=== PATIENT | female | born 1975 | race African-American/Black ===

== ENCOUNTER 2023-02-13 09:59 | Emergency (ER) | payer BC, SELFPAY ==
[2023-02-13 10:00] VITALS: BP 112/51; PULSE 74; RESP 16; TEMP 37.1; O2SAT 100; BMI 24.4
--- NOTE | 2023-02-13 10:47 | CT_ITS ---
INDICATION: dysphagia -- right ant neck, hx of hysterectomy EXAMINATION: CT NECK WITH CONTRAST - CT Soft Tissue Neck W/ Contrast Injection TECHNIQUE: Helically acquired images were obtained of the neck following IV contrast. A radiation dose optimization technique was used for this scan. IV Contrast dosage and agent: 100 cc of Isovue-370 RADIATION DOSAGE (If Supplied By Facility): CTDIvol = ( 14.07 ) mGy, DLP = ( 414.8 ) mGycm COMPARISON: No relevant prior comparison study available FINDINGS: NASOPHARYNX: Unremarkable. SUPRAHYOID NECK: Unremarkable oropharynx, oral cavity, parapharyngeal space, and retropharyngeal space. INFRAHYOID NECK: Unremarkable larynx, hypopharynx, and supraglottis. THYROID: Significant artifacts in the left lobe of thyroid gland. Otherwise grossly unremarkable. SALIVARY GLANDS: Unremarkable. LYMPH NODES: Predominantly on the right side of the neck, the largest in the right carotid space measuring about 1.3 cm which could reflect reactive lymph hyperplasia. VASCULAR STRUCTURES: Unremarkable. VISUALIZED PORTIONS OF THE ORBITS, PARANASAL SINUSES, MASTOID AIR CELLS AND SKULL BASE: Unremarkable. BONES: No demonstrated acute osseous changes. THORACIC INLET: Clear lung apices. CT/Soft Tissue Neck WITH Contrast IMPRESSION: 1. Unremarkable airway. 2. Prominent nodes in the right side of the neck which could be reactive. Electronically Signed: Ulysses Mota MD at 11:40 EDT ,
--- NOTE | 2023-02-13 10:48 | EX.ED.DYSGE1 ---
HPI History of Present Illness Chief Complaint: Foreign Body Informant: patient Narrative Narrative: Reports increasing right sided anterior neck pain worse with swallowing over 2 weeks. Initial triage report concerns for fishbone however she did not ED specific when she felt symptoms. No previous similar symptoms in the past. She is able to eat and drink however he states decreased due to discomfort. No fevers. No history of endoscopies. She has not seen a PCP in a year after moving here from [place]. Hysterectomy in the past. Prior similar symptoms: No PFSH PFSH Medical History no medical history Home Medications amoxicillin 875 mg-potassium clavulanate 125 mg tablet 875 mg (0.875 x 875-125 mg) PO Q12H #20 TABLETS 02/13/23 [Rx Last Taken Unknown] prednisone 20 mg tablet 60 mg (3 x 20 mg) PO DAILY #12 TABLETS 02/13/23 [Rx Last Taken Unknown] Allergy/AdvReac Type Severity Reaction Status Date / Time No Known Allergies Allergy Verified 02/13/23 10:02 Surgical History no surgical history Social History Smoking Status: Never smoker ROS ROS ED Constitutional Constitutional ED: Denies chills, fever(s) or sweats Eyes Eyes: Denies change in vision ENT ENT ED: Reports dysphagia; Denies sore throat Cardiovascular Cardiovascular: Denies chest pain, leg edema, palpitations or racing heartbeat Respiratory/Chest Respiratory/Chest: Denies cough, dyspnea or dyspnea on exertion Gastrointestinal Gastrointestinal: Denies abdominal pain, diarrhea, nausea or vomiting Genitourinary Genitourinary ED: Denies dysuria, hematuria or urinary frequency Musculoskeletal Musculoskeletal: Reports neck pain; Denies back pain or extremity pain Integumentary Denies rash or wounds Neurologic Neurologic: Denies headache(s), paresthesias or weakness EXAM Physical Exam Const Vital Signs: 02/13/23 10:00 02/13/23 10:28 Temperature 98.8 F Temperature Source Temporal Pulse Rate 74 Respiratory Rate 16 Respiratory Effort Normal Non-Labored Respiratory Pattern Normal Blood Pressure 112/51 L Blood Pressure Mean 71 Pulse Ox 100 Oxygen Delivery Method Room Air Positive well nourished and well developed General Appearance ED: well developed and NAD HEENT Reports moist mucous membranes HEENT Narrative: Minimal sized tonsils airway patent and no erythema. normocephalic and atraumatic Eyes PERRL, EOMs intact bilaterally and conjunctivae normal General Eye ED: Yes normal appearance of both eyes Neck supple Neck Narrative: Tender palpation right anterior cervical region, no gross mass palpated. General: Negative for tenderness Chest Wall Chest: Negative for tenderness Resp normal respiratory effort and normal air movement Effort and Inspection: symmetric chest movement; Negative for respiratory distress Cardio regular rate, regular rhythm and no murmurs Peripheral Pulses: pulses 2+ throughout GI normal to inspection, nondistended, normoactive bowel sounds and non-tender Palpation: Negative for guarding or rebound tenderness present Back/Spine no CVA tenderness and no thoracic nor lumbar tenderness Extremity normal to inspection General Extremety ED: Negative for edema or tenderness General Extremity: Negative for edema Neuro oriented x3 and no sensory deficits noted Sensorium / Orientation: awake and alert Skin no rashes or lesions noted and no wounds MDM MDM MDM Narrative Medical decision making narrative: Interventions / MDM: Differential diagnosis: Neck mass, cervical lymphadenopathy Diagnosis considered but do not suspect: Esophageal impaction, able to swallow and eat My EKG interpretation: N/A Imaging independently reviewed and interpreted by myself: CT soft tissue neck: Multiple anterior right cervical adenopathy largest 1.3 cm, no airway or esophageal obstruction. External documents reviewed: N/A Test considered but not ordered:N/A ED course: Patient progressive symptoms 2 weeks. No fevers. No signs of a throat or ear infection. Reports odynophagia. No palpable mass. Progressive symptoms, labs and CT soft tissue obtained. Results notes multiple cervical lymphadenopathy largest 1.3 cm. She started on steroids and antibiotics. She is referred to ENT. All questions were answered. Re-evaluation: stable Disposition discussed with patient/family/significant other: Patient Case discussed with consulting clinician: N/A This note was generated with [employer] dictation software. It may contain incorrect words, spelling, and punctuation that were not noted in checking the note before signing. Lab Data Attestation: I reviewed the patient's lab results. Labs: Laboratory Results - last 24 hr 02/13/23 10:57 WBC 5.6 RBC 4.52 Hgb 12.1 Hct 38.9 MCV 86.1 MCH 26.8 L MCHC 31.1 L RDW Std Deviation 39.2 RDW Coeff of Manuel 12.5 Plt Count 269 MPV 10.6 Immature Gran % (Auto) 0.200 Neut % (Auto) 48.6 Lymph % (Auto) 43.7 H [place] % (Auto) 6.5 Eos % (Auto) 0.5 Baso % (Auto) 0.5 Absolute Neuts (auto) 2.7 Absolute Lymphs (auto) 2.44 Nucleated RBC % 0 Sodium 136 Potassium 3.6 Chloride 104 Carbon Dioxide 28.0 Anion Gap 4 L BUN 13 Creatinine 0.83 Estim Creat Clear Calc 79.73 Est GFR (MDRD) Af Amer 93 Est GFR (MDRD) Non-Af 77 BUN/Creatinine Ratio 15.6 Glucose 90 Calcium 9.3 Radiography Diagnostic Testing: Clinical Impression(s) from Imaging Studies Soft Tissue Neck CT 02/13/23 10:47 IMPRESSION: 1. Unremarkable airway. 2. Prominent nodes in the right side of the neck which could be reactive. Electronically Signed: Ulysses Mota MD at 11:40 EDT , Discharge Plan Triage Chief Complaint: Foreign Body ED Provider: Berry Gordon Dx/Rx/DC Orders Clinical Impression: Cervical adenitis, Lymphadenitis Instructions: ED ADENITIS Cervical Abx Tx Prescriptions: New prednisone 20 mg tablet 60 mg PO DAILY Qty: 12 0RF amoxicillin-pot clavulanate [amoxicillin-pot clavulanate] 875-125 mg tablet 875 mg PO Q12H Qty: 20 0RF Primary Care Provider: Care Physician,No Primary Referrals: Kwaku Black MD [Med Staff - Active Staff] - 1 Week NOT,DEFINED [Non-Staff] - Activity Restrictions/Additional Instructions: Your CT soft tissue neck notes right side anterior cervical lymphadenopathy, multiple ones largest being 1.3 cm. You have tenderness. Take steroid and antibiotic as prescribed. Follow-up with Dr. Black. Disposition Disposition: Home, Self Care Discharge Date/Time: 02/13/23 13:11
[2023-02-13 11:05] LABS: Absolute Lymphocyte Count 2.44 X10^3/uL (0.83-4.51); Absolute Neutrophil Count 2.7 X10^3/uL (2.0-7.7); Basophil# 0.03 X10^3/uL; Basophil% 0.5 % (0-1); Eosinophil# 0.03 X10^3/uL; Eosinophils% 0.5 % (0-5); Hematocrit 38.9 % (37-47); Hemoglobin 12.1 g/dL (12.0-15.0); Lymphocyte # 2.44 X10^3/ul (0.83-4.51); Lymphocyte % 43.7 % (19-41); Mean Corp Hgb Conc 31.1 g/dL (32-36); Mean Corpuscular Hgb 26.8 pg (27.0-32.0); Mean Corpuscular Volume 86.1 fL (81-99); Mean Platelet Vol. 10.6 fl (6.2-12.0); Monocyte# 0.36 X10^3/uL; Monocyte% 6.5 % (0-10); NRBC Flagged by Analyzer 0 % (0-5); Neutrophil # 2.71 X10^3/uL (2.7-7.7); Neutrophil % 48.6 % (47-70); Platelet Count 269 K/mm3 (150-450); RBC Distribution Width CV 12.5 % (11.6-14.6); RBC Distribution Width SD 39.2 fl (35.1-43.9); Red Blood Count 4.52 M/mm3 (4.2-5.4); White Blood Count 5.6 K/mm3 (4.4-11.0)
[2023-02-13 11:19] LABS: Anion Gap 4 (5-15); BUN 13 mg/dL (7-18); BUN/Creat Ratio 15.6 RATIO (10-20); Calcium,Total 9.3 mg/dL (8.5-10.1); Chloride 104 mmol/L (98-107); Creatinine, Serum 0.83 mg/dL (0.55-1.02); EST Glomerular Filtration Rate 77 mL/min (>60); Est Glom Filt Rate - Afr Amer 93 mL/min (>60); Estimated Creatinine Clearance 79.73 ml/min; Glucose 90 mg/dL (74-106); Potassium 3.6 mmol/L (3.5-5.1); Sodium Level 136 mmol/L (136-145)
[2023-02-13] MEDS: 0.9% Normal Saline (500mL Bag) 500 ML 999 ML IV (11:21)
[2023-02-13] MEDS: predniSONE 20 MG Tablet 60 MG PO (13:05)
[2023-02-13] MEDS: Amox/Clavulanate 875 MG Tablet PO (13:05)
== END 2023-02-13 13:11 | disposition home or self-care (01) ==
PROVIDERS: Emergency Provider Emergency Medicine; Visit Provider Emergency Medicine
DX: I88.9 Nonspecific lymphadenitis, unspecified (principal)
CPT/HCPCS: 70491; 80048; 85025; 99284; J7030; Q9967; A4216

== ENCOUNTER 2023-03-13 00:52 | Emergency (ER) | payer BC, SELFPAY ==
[2023-03-13 00:53] VITALS: BP 112/64; PULSE 79; RESP 16; TEMP 37.1; O2SAT 98; BMI 26.2
--- NOTE | 2023-03-13 01:52 | CT_ITS ---
INDICATION: pain EXAMINATION: CT NECK WITH CONTRAST TECHNIQUE: Helically acquired images were obtained of the neck with sagittal and coronal reconstructed images. Individualized dose optimization techniques were used for this CT. IV contrast dosage and agent: 100 mL of Isovue-370. COMPARISON: 02/13/2023 CT. FINDINGS: NASOPHARYNX: Unremarkable. SUPRAHYOID NECK: Unremarkable oropharynx, oral cavity, parapharyngeal space, and retropharyngeal space. INFRAHYOID NECK: Unremarkable larynx, hypopharynx, and supraglottis. THYROID: Unremarkable. SALIVARY GLANDS: Unremarkable. LYMPH NODES: No evidence of adenopathy. VASCULAR STRUCTURES: Unremarkable. VISUALIZED PORTIONS OF THE ORBITS, PARANASAL SINUSES, MASTOID AIR CELLS AND SKULL BASE: Unremarkable. BONES: Unremarkable. SOFT TISSUES: Unremarkable. THORACIC INLET: Visualized lung apices are unremarkable. CT/Soft Tissue Neck WITH Contrast IMPRESSION: Unremarkable contrast enhanced CT of the neck. Electronically Signed: Kristian Hurst DO at 3:00 EST ,
[2023-03-13] MEDS: Mag Hydrox/Al Hydrox/Simeth 30 ML UDC PO (02:01)
[2023-03-13] MEDS: Ketorolac 30 MG/ML Syringe IV (02:04)
[2023-03-13 02:11] LABS: Absolute Lymphocyte Count 1.75 X10^3/uL (0.83-4.51); Absolute Neutrophil Count 3.7 X10^3/uL (2.0-7.7); Basophil# 0.02 X10^3/uL; Basophil% 0.3 % (0-1); Eosinophil# 0.02 X10^3/uL; Eosinophils% 0.3 % (0-5); Hematocrit 38.3 % (37-47); Hemoglobin 11.8 g/dL (12.0-15.0); Lymphocyte # 1.75 X10^3/ul (0.83-4.51); Lymphocyte % 29.9 % (19-41); Mean Corp Hgb Conc 30.8 g/dL (32-36); Mean Corpuscular Hgb 26.7 pg (27.0-32.0); Mean Corpuscular Volume 86.7 fL (81-99); Mean Platelet Vol. 10.2 fl (6.2-12.0); Monocyte# 0.39 X10^3/uL; Monocyte% 6.7 % (0-10); NRBC Flagged by Analyzer 0 % (0-5); Neutrophil # 3.66 X10^3/uL (2.7-7.7); Neutrophil % 62.6 % (47-70); Platelet Count 282 K/mm3 (150-450); RBC Distribution Width SD 40.4 fl (35.1-43.9); Red Blood Count 4.42 M/mm3 (4.2-5.4); White Blood Count 5.9 K/mm3 (4.4-11.0)
--- NOTE | 2023-03-13 02:13 | EDS_ITS ---
HPI History of Present Illness Chief Complaint: Sore Throat Informant: patient Narrative Narrative: 47-year-old female presenting to the emergency room with sore throat. Patient states that she was seen about 2 weeks ago in the emergency department and had a CT scan for sore throat which showed some swollen lymph nodes in the right side of her neck. She states she took an antibiotic and followed up with ear nose and throat and took another antibiotic and some steroids. She states her symptoms persist. She again mentions a fishbone but cannot recall a particular time where she was eating fish and felt like something got stuck. She states that she cannot recall which ENT she saw. She states that it is worse when she rubs the right side of her neck and when she swallows. She states her voice has not changed. She has not had fever. She denies any weight gain weight loss. She denies hyper or hypothyroid symptomology. PFSH PFSH Home Medications lidocaine HCl 2 % mucosal solution (Lidocaine Viscous) 7.5 ml mucous membrane TID PRN pain 7 days #160 mL 03/13/23 [Rx Last Taken Unknown] pantoprazole 40 mg tablet,delayed release (Protonix) 40 mg PO DAILY #14 tabs 03/13/23 [Rx Last Taken Unknown] Allergy/AdvReac Type Severity Reaction Status Date / Time No Known Allergies Allergy Verified 03/13/23 00:53 Social History Smoking Status: Never smoker ROS ROS ED Constitutional Constitutional ED: Denies chills or weight loss Eyes Eyes: Denies change in vision or diplopia ENT ENT ED: Reports sore throat; Denies ear pain or rhinorrhea Cardiovascular Cardiovascular: Denies chest pain, orthopnea, palpitations or racing heartbeat Respiratory/Chest Respiratory/Chest: Denies cough, dyspnea or orthopnea Gastrointestinal Gastrointestinal: Denies abdominal pain, diarrhea, nausea or vomiting Genitourinary Genitourinary ED: Denies dysuria, hematuria or urinary frequency Musculoskeletal Musculoskeletal: Reports neck pain; Denies arthralgias or myalgias Integumentary Denies abscess or rash Neurologic Neurologic: Denies headache(s) or weakness Psychiatric Psychiatric: Denies anxiety, depression, suicidal ideation or suicidal thoughts Endocrine Endocrinology: Denies polydipsia, polyphagia or polyuria Allergic/Immunologic Allergic/Immunologic ED: Denies mouth swelling, tongue swelling or urticaria EXAM Physical Exam Const Vital Signs: 03/13/23 00:53 Temperature 98.7 F Temperature Source Temporal Pulse Rate 79 Respiratory Rate 16 Blood Pressure 112/64 Blood Pressure Mean 80 Pulse Ox 98 Positive well nourished and well developed General Appearance ED: well developed HEENT Reports normocephalic, head/scalp atraumatic and moist mucous membranes Eyes PERRL and EOMs intact bilaterally Neck no lymphadenopathy, supple and no JVD Neck Narrative: Patient reports tenderness to palpation on the right side of her neck along the SCM just inferior to the larynx I do not appreciate swelling or erythema. Voice appears normal. She is handling her secretions normally. Resp normal respiratory effort and clear to auscultation bilaterally Cardio regular rate, regular rhythm and no murmurs GI normal to inspection, nondistended, normoactive bowel sounds and non-tender Palpation: soft Back/Spine no CVA tenderness and normal ROM Extremity normal to inspection General Extremety ED: Negative for edema General Extremity: Negative for edema Neuro oriented x3 and CN's II-XII intact bilaterally Sensorium / Orientation: alert Motor Exam: strength 5/5 throughout Psych mental status grossly normal Mood & Affect: Negative for depressed or tearful Skin no rashes or lesions noted and no wounds MDM MDM MDM Narrative Medical decision making narrative: White count is normal at 5.9. TSH is low 0.12. BMP normal. CT of the neck with IV contrast shows nothing acute. Give the patient Toradol as well as a GI cocktail. She states that the GI cocktail really helped her discomfort. She does not describe increased symptoms with laying down or with eating. Given that she got good relief with the lidocaine certainly makes me think of a mucosal surface but not seeing anything obvious at this time. I did recommend following up with the ENT. Perhaps she needs a scope. I can write her for some viscous lidocaine. Also placed her on Protonix see if that helps. History & Record Review Additional record(s) reviewed:: Prior outpatient record, Prior ED visit and Prior labs Lab Data Attestation: I reviewed the patient's lab results. Labs: Laboratory Results - last 24 hr 03/13/23 02:05 WBC 5.9 RBC 4.42 Hgb 11.8 L Hct 38.3 MCV 86.7 MCH 26.7 L MCHC 30.8 L RDW Std Deviation 40.4 RDW Coeff of Manuel 13.0 Plt Count 282 MPV 10.2 Immature Gran % (Auto) 0.200 Neut % (Auto) 62.6 Lymph % (Auto) 29.9 [place] % (Auto) 6.7 Eos % (Auto) 0.3 Baso % (Auto) 0.3 Absolute Neuts (auto) 3.7 Absolute Lymphs (auto) 1.75 Nucleated RBC % 0 Sodium 138 Potassium 4.0 Chloride 106 Carbon Dioxide 26.0 Anion Gap 6 BUN 13 Creatinine 0.86 Estim Creat Clear Calc 71.20 Est GFR (MDRD) Af Amer 90 Est GFR (MDRD) Non-Af 75 BUN/Creatinine Ratio 15.2 Glucose 105 Calcium 9.1 TSH 0.12 L Radiography Diagnostic Testing: Clinical Impression(s) from Imaging Studies Soft Tissue Neck CT 03/13/23 01:52 IMPRESSION: Unremarkable contrast enhanced CT of the neck. Electronically Signed: Kristian Hurst DO at 3:00 EST Reading Location ID and State: [facility] / [place] Tel , Service support , Discharge Plan Triage Chief Complaint: Sore Throat ED Provider: Bimal Cherry Dx/Rx/DC Orders Clinical Impression: Acute neck pain, Acute sore throat Prescriptions: New lidocaine HCl [Lidocaine Viscous] 2 % solution 7.5 ml mucous membrane TID PRN (Reason: pain) 7 Days Qty: 160 0RF pantoprazole [Protonix] 40 mg tablet,delayed release (DR/EC) 40 mg PO DAILY Qty: 14 0RF Primary Care Provider: Care Physician,No Primary Referrals: Kwaku Black MD [Med Staff - Active Staff] - As soon as possible Care Physician,No Primary [Primary Care Provider] -
[2023-03-13 02:36] LABS: Anion Gap 6 (5-15); BUN 13 mg/dL (7-18); BUN/Creat Ratio 15.2 RATIO (10-20); Calcium,Total 9.1 mg/dL (8.5-10.1); Chloride 106 mmol/L (98-107); Creatinine, Serum 0.86 mg/dL (0.55-1.02); EST Glomerular Filtration Rate 75 mL/min (>60); Est Glom Filt Rate - Afr Amer 90 mL/min (>60); Glucose 105 mg/dL (74-106); Sodium Level 138 mmol/L (136-145); Thyroid Stim Hormone (TSH) 0.12 uIU/mL (0.358-3.74)
[2023-03-13 03:44] VITALS: BP 134/77; PULSE 62; RESP 15; O2SAT 97
== END 2023-03-13 03:45 | disposition home or self-care (01) ==
PROVIDERS: Emergency Provider Emergency Medicine; Visit Provider Emergency Medicine
DX: M54.2 Cervicalgia (principal); J02.9 Acute pharyngitis, unspecified
CPT/HCPCS: 70491; 80048; 84443; 85025; 96374; 99283; Q9967; A4216

== ENCOUNTER → 2023-10-29 | Outpatient (CLI) | payer BC, SELFPAY ==
[2023-10-29 13:53] LABS: ALB/GLOB Ratio 0.8 RATIO (0.9-2.4); AST(SGOT) 23 U/L (15-37); Alanine Aminotransfer ALT/SGPT 34 U/L (13-56); Albumin, Serum 3.7 g/dL (3.2-5.0); Alkaline Phosphatase 79 U/L (45-117); Anion Gap 7 (5-15); BUN 12 mg/dL (7-18); BUN/Creat Ratio 12.9 RATIO (10-20); Calcium,Total 9.7 mg/dL (8.5-10.1); Chloride 102 mmol/L (98-107); Cholesterol 247 mg/dL (200); Creatinine, Serum 0.93 mg/dL (0.55-1.02); EST Glomerular Filtration Rate 68 mL/min (>60); Est Glom Filt Rate - Afr Amer 82 mL/min (>60); Globulin 4.8 g/dL (2.2-4.2); Glucose 104 mg/dL (74-106); High Density Lipoprotein 67 mg/dL; Potassium 4.3 mmol/L (3.5-5.1); Protein, Total 8.5 g/dL (6.4-8.2); Sodium Level 137 mmol/L (136-145); Thyroid Stim Hormone (TSH) 5.84 uIU/mL (0.358-3.74); Triglycerides 83 mg/dL; Very Low Density Lipoprotein 17 mg/dL (5-40)
== END | disposition home or self-care (01) ==
LOC: MFPLAB 08:14
PROVIDERS: PCP Family Medicine; Visit Provider Family Medicine
DX: Z00.00 Encounter for general adult medical examination without abnormal findings (principal)
CPT/HCPCS: 36415; 80053; 80061; 84443

== ENCOUNTER → 2024-12-12 | Outpatient (CLI) | payer BC, SELFPAY ==
[2024-12-12 18:05] LABS: AST(SGOT) 21 U/L (<=31); Alanine Aminotransfer ALT/SGPT 14 U/L (<=34); Albumin, Serum 4.2 g/dL (3.5-5.0); Alkaline Phosphatase 108 U/L (35-104); Anion Gap 12 (5-15); BUN 12 mg/dL (4-19); BUN/Creat Ratio 13.8 RATIO (10-20); Calcium,Total 9.6 mg/dL (7.6-11.0); Carbon Dioxide 23.8 mmol/L (21.0-32.0); Chloride 105 mmol/L (98-108); Cholesterol 251 mg/dL (<=200); Globulin 3.5 g/dL (2.2-4.2); Glucose 81 mg/dL (70-99); Low Density Lipoprotein Calc. 171 mg/dL; Potassium 4.3 mmol/L (3.3-5.1); Triglycerides 100 mg/dL; Very Low Density Lipoprotein 20 mg/dL (5-40); cholesterol:hdl ratio screen 4.16
== END | disposition home or self-care (01) ==
LOC: MFPLAB 14:41
PROVIDERS: PCP Family Medicine; Referring Provider Family Medicine; Visit Provider Family Medicine
DX: E78.00 Pure hypercholesterolemia, unspecified (principal)
CPT/HCPCS: 36415; 80053; 80061

== ENCOUNTER → 2025-02-11 | Outpatient (CLI) | payer BC, SELFPAY ==
--- NOTE | 2025-02-11 14:51 | BI_ITS ---
EXAM: SCRN MAMM (CAD)W/CLAYTON BILAT DATE: 02/11/2025 CLINICAL HISTORY: F, Age 49 y/o , SCREENING No family history. TECHNIQUE: Procedure Code: [id number] Modality: MG Procedure: SCRN MAMM (CAD)W/CLAYTON BILAT COMPARISON: Prior exam(s) dated March 11, 2021.. FINDINGS: TISSUE DENSITY: The breasts are extremely dense, which lowers the sensitivity of mammography. Bilateral Breast Mammographic Findings: There is a 1.5 cm 1.3 cm well-defined nodule in the upper lateral aspect of the left breast. There is also evidence of a 9.4 mm by 8.6 mm nodule in the medial retroareolar region of the left breast. Correlation with ultrasound recommended. BI/SCRN MAMM (CAD)W/CLAYTON BILAT IMPRESSION: Left breast nodules as described. Sonographic correlation recommended. OVERALL FINAL ASSESSMENT BI-RADS 0: INCOMPLETE - NEED ADDITIONAL IMAGING EVALUATION. RECOMMENDATION: Ultrasound Recommended Additional Recommendation none A letter with findings and recommendations will be mailed to the patient. Reading Location: [place] [address]
== END | disposition home or self-care (01) ==
LOC: OPBI 14:50
PROVIDERS: PCP Family Medicine; Referring Provider Family Medicine; Visit Provider Family Medicine
DX: Z00.00 Encounter for general adult medical examination without abnormal findings (principal); Z12.31 Encounter for screening mammogram for malignant neoplasm of breast
CPT/HCPCS: 77063; 77067

== ENCOUNTER → 2025-03-14 | Outpatient (CLI) | payer BC, SELFPAY ==
--- OUTSIDE RECORDS SUMMARY | 2025-03-14 08:35 | XMS RPT_ITS | CCD ---
Author Organization [facility] Inform ion Partnership [facility] [place] [facility] Care Team Providers Care Incubator Tender Name Role Phone Debo REED, Dr. Davis Primary Care Provider Debo REED, Dr. Davis Attending Provider Debo REED, Dr. Davis Referring Provider Ryan Edmondson Primary Care Unavailable Ryan Edmondson Attending Unavailable Debo, Ryan Referring Unavailable Debo, Ryan Attending Unavailable Debo, Ryan Referring Unavailable Ryan Edmondson Primary Care Unavailable Debo, Ryan Attending Unavailable Debo, Ryan Referring Unavailable Debo, Ryan Primary Care Unavailable Medications Current Medications Medication Drug Class(es) Dates Sig (Normalized) Sig (Original) Lidocaine (2 sources) Antiarrhythmic, Amide Local Anesthetic Start: 03-13-2023 Lidocaine Hcl (Lidocaine Viscous) 2 % solution Active 7.5 mL MUCOUS MEM THREE TIMES A DAY as needed for pain 160 7 0 March 13, 2023 1:00am Start: 03-13-2023 Lidocaine Hcl (Lidocaine Viscous) 2 % solution Active 7.5 ML MUCOUS MEM THREE TIMES A DAY 160 7 March 13, 2023 12:00am pantoprazole 40 mg delayed release oral tablet (2 sources) Proton Pump Inhibitor Start: 03-13-2023 take 1 tablet by mouth once daily Pantoprazole (Protonix) 40 mg tablet,delayed release (DR/EC) Active 40 mg PO DAILY 14 0 March 13, 2023 1:00am Completed/Discontinued Medications Medication Drug Class(es) Dates Sig (Normalized) Sig (Original) amoxicillin 875 mg / clavulanate 125 mg oral tablet (3 sources) Penicillin-class Antibacterial Start: 02-13-2023 End: 03-13-2023 take 1 tablet by mouth every twelve hours Amoxicillin-Pot Clavulanate 875-125 mg tablet Discontinued 875 mg PO Q12H 20 February 13, 2023 12:00am March 13, 2023 1:56am predniSONE 20 mg oral tablet (3 sources) Start: 02-13-2023 End: 03-13-2023 take 3 tablets by mouth once daily Prednisone 20 mg tablet Discontinued 60 mg PO DAILY February 13, 2023 12:00am March 13, 2023 1:56am Start: 02-13-2023 End: 03-13-2023 take 60 mg by mouth once daily Prednisone Discontinued 60 MG PO DAILY February 12, 2023 11:00pm March 13, 2023 12:56am Problems Problem Classification Problem Date Documented Da te Episodic/Chronic Disorders of lipid metabolism (1 source) Pure hypercholesterolemi a, unspecified; Translations: [Pure hypercholesterolemi a, unspecified] Onset: 12-17-2024 Chronic Lymphadenitis (6 sources) Cervical lymphadenitis; Translations: [Nonspecific lymphadenitis, unspecified] 02-13-2023 Episodic Other screening for suspected conditions (not mental disorders or infectious disease) (1 source) Other abnormal and inconclusive findings on diagnostic imaging of breast; Translations: [Other abnormal and inconclusive findings on diagnostic imaging of breast] Onset: 03-11-2025 Episodic Other upper respiratory infections (2 sources) Pain in throat; Translations: [Acute pharyngitis, unspecified] 03-13-2023 Episodic Spondylosis; intervertebral disc disorders; other back problems (2 sources) Neck pain; Translations: [Cervicalgia] 03-13-2023 Episodic Results Test Name Value Interpretation Reference Range Facility SCRN MAMM (CAD)W/CLAYTON BILATo n 02-11-2025 SCRN MAMM (CAD)W/CLAYTON BILAT [facility] Imaging Services [address], [place] [id number] SCRN MAMM (CAD)W/CLAYTON BILAT MR#: [id number] Acct: [id number] Name: FELICE JULIAN Rep #: [id number] : 1975 F 49 From: Milton soliz MD PCP: Dr. Ryan Edmondson MD Status: [facility] CLI Study: SCRN MAMM (CAD)W/CLAYTON BILAT Date of Exam: 01/28 09/21 Exam# [id number] Ordering Dr: Ryan Edmondson MD EXAM: SCRN MAMM (CAD)W/CLAYTON BILAT DATE: 02/11/2025 CLINICAL HISTORY: F, Age 49 y/o , SCREENING No family history. TECHNIQUE: Procedure Code: [id number] Modality: MG Procedure: SCRN MAMM (CAD)W/CLAYTON BILAT COMPARISON: Prior exam(s) dated March 11, 2021.. FINDINGS: TISSUE DENSITY: The breasts are extremely dense, which lowers the sensitivity of mammography. Bilateral Breast Mammographic Findings: There is a 1.5 cm 1.3 cm well-defined nodule in the upper lateral aspect of the left breast. There is also evidence of a 9.4 mm by 8.6 mm nodule in the medial retroareolar region of the left breast. Correlation with ultrasound recommended. BI/SCRN MAMM (CAD)W/CLAYTON BILAT IMPRESSION: Left breast nodules as described. Sonographic correlation recommended. OVERALL FINAL ASSESSMENT BI-RADS 0: INCOMPLETE - NEED ADDITIONAL IMAGING EVALUATION. RECOMMENDATION: Ultrasound Recommended Additional Recommendation none A letter with findings and recommendations will be mailed to the patient. Reading Location: [place] [address] CC: Dr. Ryan Edmondson MD Naphthalene Operator: Signed Normal [facility] Anion gap in Serum or Plasma Ordered By: Ryan Edmondson on 12-12-2024 Anion gap [Moles/Vol] 12 mmol/L - [facility] BUN/creatinine ratioOrdered By: Ryan Edmondson on 12-12-2024 Urea nitrogen/Creatinine [Mass ratio] 13.8 mg/mg 10-20 [facility] Bilirubin, totalOrdered By: Ryan Edmondson on 12-12-2024 Bilirubin [Mass/Vol] 0.33 mg/dL 0.00-1.30 [facility] Calculated very low density lipoprotein (VLDL) cholesterol measurementOrdered By: Ryan Edmondson on 12-12-2024 Calculated very low density lipoprotein (VLDL) cholesterol measurement 20 mg/dL 5-40 [facility] Carbon dioxide, total [Moles /volume] in Central venous bloodOrdered By: Ryan Edmondson on 12-12-2024 CO2 [Moles/Vol] 23.8 mmol/L 21.0-32.0 [facility] Chloride assayOrdered By: Franklin Edmondson on 12-12-2024 Chloride [Moles/Vol] 105 mmol/L 98-108 [facility] Comprehensive Metabolic Prof ilon 12-12-2024 Albumin [Mass/Vol] 4.2 g/dL Normal 3.5-5.0 [facility] Comment on above: Performed By: #### L 500.4050, L500.4100 #### [facility] [address] [place], [address] Albumin/Globulin [Mass ratio] 1.2 {ratio} Normal 0.9-2.4 [facility] Comment on above: Performed By: #### L 500.4050, L500.4100 #### [facility] [address] [place], [address] ALK PHOS 108 U/L High 35-104 [facility] Comment on above: Performed By: #### L 500.4050, L500.4100 #### [facility] [address] [place], [address] ALT [Catalytic activity/Vol] 14 U/L Normal <=34 [facility] Comment on above: Performed By: #### L [id number], L500.4100 #### [facility] [address] [place], [address] AST [Catalytic activity/Vol] 21 U/L Normal <=31 [facility] Comment on above: Performed By: #### L [id number], L500.4100 #### [facility] [address] [place], [address] Bilirubin [Mass/Vol] 0.33 mg/dL Normal 0.00-1.30 [facility] Comment on above: Performed By: #### L 500.4050, L500.4100 #### [facility] [address] [place], [address] BUN/CRE 13.8 RATIO Normal 10-20 [facility] Comment on above: Performed By: #### L 500.4050, L500.4100 #### [facility] [address] [place], [address] Calcium [Mass/Vol] 9.6 mg/dL Normal 7.6-11.0 [facility] Comment on above: Performed By: #### L 500.4050, L500.4100 #### [facility] [address] [place], [address] Chloride [Moles/Vol] 105 mmol/L Normal 98-108 [facility] Comment on above: Performed By: #### L 500.4050, L500.4100 #### [facility] [address] [place], [address] CO2 [Moles/Vol] 23.8 mmol/L Normal 21.0-32.0 [facility] Comment on above: Performed By: #### L 500.4050, L500.4100 #### [facility] [address] [place], [address] Creatinine [Mass/Vol] 0.86 mg/dL Normal 0.70-1.20 [facility] Comment on above: Performed By: #### L 500.4050, L500.4100 #### [facility] [address] [place], [address] GAP 12 Normal 5-15 [facility] Comment on above: Performed By: #### L 500.4050, L500.4100 #### [facility] [address] [place], [address] GFR/1.73 sq M.predicted among non-blacks MDRD (S/P/Bld) [Vol rate/Area] 82 mL/min/{1.73_m2} Normal >60 [facility] Comment on above: Result Comment: mL/m in/1.73m2 CKD-EPI Creatinine Equation (2020) Performed By: #### L 500.4050, L500.4100 #### [facility] [address] [place], [address] Globulin (S) [Mass/Vol] 3.5 g/dL Normal 2.2-4.2 [facility] Comment on above: Performed By: #### L 500.4050, L500.4100 #### [facility] [address] [place], [address] Glucose [Mass/Vol] 81 mg/dL Normal 70-99 [facility] Comment on above: Performed By: #### L 500.4050, L500.4100 #### [facility] [address] [place], [address] Potassium [Moles/Vol] 4.3 mmol/L Normal 3.3-5.1 [facility] Comment on above: Performed By: #### L 500.4050, L500.4100 #### [facility] [address] [place], [address] Sodium [Moles/Vol] 141 mmol/L Normal 133-145 [facility] Comment on above: Performed By: #### L 500.4050, L500.4100 #### [facility] [address] [place], [address] T PROT 7.7 g/dL Normal 5.9-8.4 [facility] Comment on above: Performed By: #### L 500.4050, L500.4100 #### [facility] [address] [place], [address] Urea nitrogen [Mass/Vol] 12 mg/dL Normal 4-19 [facility] Comment on above: Performed By: #### L 500.4050, L500.4100 #### [facility] [address] [place], [place], [id number] Glomerular filtration rate ( GFR) estimation/1.73 sq m using serum, plasma, or whole bOrdered By: Ryan Edmondson on 12-12-2024 GFR/1.73 sq M.predicted among non-blacks MDRD (S/P/Bld) [Vol rate/Area] 82 mL/min/{1.73_m2} >60 [facility] Comment on above: mL/min/1.73m2 CKD-EP I Creatinine Equation (2020) LDL calc ser/plasOrdered By: Ryan Edmondson on 12-12-2024 Cholesterol in LDL [Mass/Vol] 171 mg/dL [facility] Comment on above: Spiqumgboe=178-379 m g/dL & Higher Vgwf=770 mg/dL or greaterFriedwald Equation for LDL-C Laboratory - Chemistry and C hemistry - challengeOrdered By: Ryan Edmondson on 12-12-2024 AST [Catalytic activity/Vol] 21 U/L <32 [facility] Lipid Profileon 12-12-2024 CHOL:HDL 4.16 Normal [facility] Comment on above: Performed By: #### L 500.4050, L500.4100 #### [facility] [address] [place], [place], [id number] Cholesterol [Mass/Vol] 251 mg/dL High <=200 [facility] Comment on above: Result Comment: Chol esterol level, Desirable <200 mg/dL Borderline high cholesterol 200-239 mg/dL High cholesterol >=240 mg/dL Recommendations of the NCEP Adult Treatment Panel for the following risk-cutoff thresholds for the [place] population. Performed By: #### L 500.4050, L500.4100 #### [facility] [address] [place], [place], [id number] Cholesterol in HDL [Mass/Vol] 60 mg/dL Normal [facility] Comment on above: Result Comment: Janice onal Cholesterol Education Program (NCEP) guidelines: <40 mg/dL: Low HDL-cholesterol (major risk factor for CHD) >= 60 mg/dL: High HDL-cholesterol (negative risk factor for CHD) HDL-cholesterol is affected by a number of factors, e.g. smoking, exercise, hormones, sex and age. Performed By: #### L 500.4050, L500.4100 #### [facility] [address] [place], [address] Cholesterol in LDL [Mass/Vol] 171 mg/dL Normal [facility] Comment on above: Result Comment: Bord aiggsj=696-055 mg/dL Higher Lhmx=501 mg/dL or greater Friedwald Equation for LDL-C Performed By: #### L 500.4050, L500.4100 #### [facility] [address] [place], [address] Cholesterol in VLDL [Mass/Vol] 20 mg/dL Normal 5-40 [facility] Comment on above: Performed By: #### L 500.4050, L500.4100 #### [facility] [address] [place], [address] Triglyceride [Mass/Vol] 100 mg/dL Normal [facility] Comment on above: Result Comment: The drugs N-Acetylcysteine and Metamizole may falsely depress this assay. Normal range: <150 mg/dL Borderline High: 150-199 mg/dL High: 200-499 mg/dL Very High: >500 mg/dL Performed By: #### L 500.4050, L500.4100 #### [facility] [address] [place], [address] Potassium measurement (mass/ volume)Ordered By: Ryan Edmondson on 12-12-2024 Potassium (Unsp spec) [Mass/Vol] 4.3 mmol/L 3.3-5.1 [facility] Screening total cholesterol/ high density lipoprotein (HDL) cholesterol ratioOrdered By: Ryan Edmondson on 12-12-2024 Cholesterol.total/[place] sterol in HDL [Mass ratio] 4.16 {ratio} [facility] Serum creatinine measurement (mass/volume)Ordered By: Ryan Edmondson on 12-12-2024 Creatinine [Mass/Vol] 0.86 mg/dL 0.70-1.20 [facility] Serum globulin measurementOr dered By: Ryan Edmondson on 12-12-2024 Globulin (S) [Mass/Vol] 3.5 g/dL 2.2-4.2 [facility] [place] Serum glucose measurement (m ass/volume)Ordered By: Ryan Edmondson on 12-12-2024 Glucose [Mass/Vol] 81 mg/dL 70-99 [facility] Serum or plasma alanine cruz otransferase (ALT) measurementOrdered By: Ryan Edmondson on 12-12-2024 ALT [Catalytic activity/Vol] 14 U/L <35 [facility] Serum or plasma albumin michael urement (mass/volume)Ordered By: Ryan Edmondson on 12-12-2024 Albumin [Mass/Vol] 4.2 g/dL 3.5-5.0 [facility] Serum or plasma albumin/glob ulin mass ratioOrdered By: Ryan Edmondson on 12-12-2024 Albumin/Globulin [Mass ratio] 1.2 {ratio} 0.9-2.4 [facility] Serum or plasma alkaline tanisha sphatase measurementOrdered By: Ryan Edmondson on 12-12-2024 ALP [Catalytic activity/Vol] 108 U/L High 35-104 [facility] Serum or plasma calcium michael urement (mass/volume)Ordered By: Ryan Edmondson on 12-12-2024 Calcium [Mass/Vol] 9.6 mg/dL 7.6-11.0 [facility] Serum or plasma cholesterol in HDL measurement (mass/volume)Ordered By: Ryan Edmondson on 12-12-2024 Cholesterol in HDL [Mass/Vol] 60 mg/dL >40 [facility] Comment on above: National Cholesterol Education Program (NCEP) guidelines:<40 mg/dL: Low HDL-cholesterol (major risk factor for CHD)>= 60 mg/dL: High HDL-cholesterol (negative risk factor for CHD)HDL-cholesterol is affected by a number of factors, e.g. smoking, exercise, hormones, sex and age. Serum or plasma cholesterol measurement (mass/volume)Ordered By: Ryan Edmondson on 12-12-2024 Cholesterol [Mass/Vol] 251 mg/dL High <201 [facility] Comment on above: Cholesterol level, D esirable <200 mg/dLBorderline high cholesterol 200-239 mg/dLHigh cholesterol >=240 mg/dLRecommendations of the NCEP Adult Treatment Panel for the following risk-cutoff thresholds for the [place] population. Serum or plasma urea nitroge n measurement (mass/volume)Ordered By: Ryan Edmondson on 12-12-2024 Urea nitrogen [Mass/Vol] 12 mg/dL 4-19 [facility] Sodium levelOrdered By: Ryan Edmondson on 12-12-2024 Sodium [Moles/Vol] 141 mmol/L 133-145 [facility] Total proteinOrdered By: Marie Edmondson on 12-12-2024 Protein [Mass/Vol] 7.7 g/dL 5.9-8.4 [facility] Triglycerides measurementOrd ered By: Ryan Edmondson on 12-12-2024 Triglyceride [Mass/Vol] 100 mg/dL <199 [facility] [place] Comment on above: The drugs N-Acetylcy steine and Metamizole may falsely depress this assay. Normal range: <150 mg/dLBorderline High: 150-199 mg/dLHigh: 200-499 mg/dLVery High: >500 mg/dL Absolute lymphocyte countOrd ered By: Bimal Cherry on 03-13-2023 Lymphocytes Auto (Unsp spec) [#/Vol] 1.75 10*3/uL 0.83-4.51 [facility] Basophil percentageOrdered B y: Bimal Cherry on 03-13-2023 Basophils/100 WBC (Bld) 0.3 % 0-1 [facility] [place] Chloride [Moles/Vol] 106 mmol/L 98-107 [facility] Eosinophils/100 WBC (Bld) 0.3 % 0-5 [facility] Glucose [Mass/Vol] 105 mg/dL 74-106 [facility] Comment on above: Fasting Glucose resu lt from 100 to 125 mg/dL suggests IMPAIRED HOMEOSTASIS per A.D.A. criteria. Neutrophils (Bld) [#/Vol] 3.7 10*3/uL 2.0-7.7 [facility] Neutrophils/100 WBC (Bld) 62.6 % 47-70 [facility] Potassium [Moles/Vol] 4.0 mmol/L 3.5-5.1 [facility] Sodium [Moles/Vol] 138 mmol/L 136-145 [facility] WBC (Bld) [#/Vol] 5.9 10*3/uL 4.4-11.0 [facility] Blood erythrocytes count (nu mber/volume)Ordered By: Bimal Cherry on 03-13-2023 RBC (Bld) [#/Vol] 4.42 10*6/uL 4.2-5.4 [facility] Blood hemoglobin measurement (mass/volume)Ordered By: Bimal Cherry on 03-13-2023 Hemoglobin (Bld) [Mass/Vol] 11.8 g/dL 12.0-15.0 [facility] Blood lymphocytes/100 leukoc ytesOrdered By: Bimal Cherry on 03-13-2023 Lymphocytes/100 WBC (Bld) 29.9 % 19-41 [facility] Blood monocytes/100 leukocyt esOrdered By: Bimal Cherry on 03-13-2023 Monocytes/100 WBC (Bld) 6.7 % 0-10 [facility] [place] Blood platelet mean volumeOr dered By: Bimal Cherry on 03-13-2023 Platelet mean volume (Bld) [Entitic vol] 10.2 fL 6.2-12.0 [facility] Determination of erythrocyte mean corpuscular volume (MCV)Ordered By: Bimal Cherry on 03-13-2023 MCV (RBC) [Entitic vol] 86.7 fL 81-99 [facility] [place] Hematocrit Auto (Bld) [Volum e fraction]Ordered By: Bimal Cherry on 03-13-2023 Hematocrit (Bld) [Volume fraction] 38.3 % 37-47 [facility] - Chemistry and C hemistry - challengeOrdered By: Bimal Cherry on 03-13-2023 CO2 [Moles/Vol] 26.0 mmol/L 21.0-32.0 [facility] Urea nitrogen/Creatinine [Mass ratio] 15.2 mg/mg 10-20 [facility] - Hematology and Cell countsOrdered By: Bimal Cherry on 03-13-2023 Erythrocyte distribution width (RBC) [Entitic vol] 40.4 fL 35.1-43.9 [facility] Erythrocyte distribution width (RBC) [Ratio] 13.0 % 11.6-14.6 [facility] Immature granulocytes/100 WBC (Bld) 0.200 % 0.0-0.9 [facility] Comment on above: IG% - Immature Granu locytes (promyelocytes, myelocytes and metamyelocytes) > 1% indicates that a LEFT SHIFT is Present. MCH (RBC) [Entitic mass] 26.7 pg 27.0-32.0 [facility] Nucleated RBC/100 WBC (Bld) [Ratio] 0 % 0-5 [facility] MCHC Auto (RBC) [Mass/Vol]Or dered By: Bimal Cherry on 03-13-2023 MCHC (RBC) [Mass/Vol] 30.8 g/dL 32-36 [facility] No Panel InformationOrdered By: Bimal Cherry on 03-13-2023 Estimated Creatinine Clearance Calc 71.20 ml/min [facility] Estimated GFR (MDRD) Amer 90 mL/min >60 [facility] Comment on above: GFR Calc Estimated GFR (MDRD) Non-Af Amer 75 mL/min >60 [facility] Comment on above: Non- GFR Calc Thyroid Stimulating Hormone (TSH) 0.12 uIU/mL 0.358-3.74 [facility] Platelets bldOrdered By: Jony Cherry on 03-13-2023 Platelets (Bld) [#/Vol] 282 10*3/uL 150-450 [facility] Serum or plasma calcium michael urement (mass/volume)Ordered By: Bimal Cherry on 03-13-2023 Calcium [Mass/Vol] 9.1 mg/dL 8.5-10.1 [facility] Serum or plasma creatinine m easurement (mass/volume)Ordered By: Bimal Cherry on 03-13-2023 Creatinine [Mass/Vol] 0.86 mg/dL 0.55-1.02 [facility] Comment on above: The validity of the calculated GFR & GFRAA in patients over 70 years has not been determined. Clinical correlation is essential. Serum or plasma urea nitroge n measurement (mass/volume)Ordered By: Bimal Cherry on 03-13-2023 Urea nitrogen [Mass/Vol] 13 mg/dL 7-18 [facility] Thin prep Papanicolaou smear with manual screeningOrdered By: Bimal Cherry on 03-13-2023 Thin prep Papanicolaou smear with manual screening 6 5-15 [facility] Absolute lymphocyte countOrd ered By: Berry Gordon on 02-13-2023 Lymphocytes Auto (Unsp spec) [#/Vol] 2.44 10*3/uL 0.83-4.51 [facility] Basophil percentageOrdered B y: Berry Gordon on 02-13-2023 Basophils/100 WBC (Bld) 0.5 % 0-1 [facility] [place] Chloride [Moles/Vol] 104 mmol/L 98-107 [facility] Eosinophils/100 WBC (Bld) 0.5 % 0-5 [facility] Glucose [Mass/Vol] 90 mg/dL 74-106 [facility] Neutrophils (Bld) [#/Vol] 2.7 10*3/uL 2.0-7.7 [facility] Neutrophils/100 WBC (Bld) 48.6 % 47-70 [facility] Potassium [Moles/Vol] 3.6 mmol/L 3.5-5.1 [facility] Sodium [Moles/Vol] 136 mmol/L 136-145 [facility] WBC (Bld) [#/Vol] 5.6 10*3/uL 4.4-11.0 [facility] Blood erythrocytes count (nu mber/volume)Ordered By: Berry Gordon on 02-13-2023 RBC (Bld) [#/Vol] 4.52 10*6/uL 4.2-5.4 [facility] Blood hemoglobin measurement (mass/volume)Ordered By: Berry Gordon on 02-13-2023 Hemoglobin (Bld) [Mass/Vol] 12.1 g/dL 12.0-15.0 [facility] Blood lymphocytes/100 leukoc ytesOrdered By: Berry Gordon on 02-13-2023 Lymphocytes/100 WBC (Bld) 43.7 % 19-41 [facility] Blood monocytes/100 leukocyt esOrdered By: Berry Gordon on 02-13-2023 Monocytes/100 WBC (Bld) 6.5 % 0-10 [facility] [place] Blood platelet mean volumeOr dered By: Berry Gordon on 02-13-2023 Platelet mean volume (Bld) [Entitic vol] 10.6 fL 6.2-12.0 [facility] Determination of erythrocyte mean corpuscular volume (MCV)Ordered By: Berry Gordon on 02-13-2023 MCV (RBC) [Entitic vol] 86.1 fL 81-99 [facility] [place] Hematocrit Auto (Bld) [Volum e fraction]Ordered By: Berry Gordon on 02-13-2023 Hematocrit (Bld) [Volume fraction] 38.9 % 37-47 [facility] - Chemistry and C hemistry - challengeOrdered By: Berry Gordon on 02-13-2023 CO2 [Moles/Vol] 28.0 mmol/L 21.0-32.0 [facility] Urea nitrogen/Creatinine [Mass ratio] 15.6 mg/mg 10-20 [facility] - Hematology and Cell countsOrdered By: Berry Gordon on 02-13-2023 Erythrocyte distribution width (RBC) [Entitic vol] 39.2 fL 35.1-43.9 [facility] Erythrocyte distribution width (RBC) [Ratio] 12.5 % 11.6-14.6 [facility] Immature granulocytes/100 WBC (Bld) 0.200 % 0.0-0.9 [facility] Comment on above: IG% - Immature Granu locytes (promyelocytes, myelocytes and metamyelocytes) > 1% indicates that a LEFT SHIFT is Present. MCH (RBC) [Entitic mass] 26.8 pg 27.0-32.0 [facility] Nucleated RBC/100 WBC (Bld) [Ratio] 0 % 0-5 [facility] MCHC Auto (RBC) [Mass/Vol]Or dered By: Berry Gordon on 02-13-2023 MCHC (RBC) [Mass/Vol] 31.1 g/dL 32-36 [facility] No Panel InformationOrdered By: Berry Gordon on 02-13-2023 Estimated Creatinine Clearance Calc 79.73 ml/min [facility] Estimated GFR (MDRD) Amer 93 mL/min >60 [facility] Comment on above: GFR Calc Estimated GFR (MDRD) Non-Af Amer 77 mL/min >60 [facility] Comment on above: Non- GFR Calc Platelets bldOrdered By: Oziel Gordon on 02-13-2023 Platelets (Bld) [#/Vol] 269 10*3/uL 150-450 [facility] Serum or plasma calcium michael urement (mass/volume)Ordered By: Berry Gordon on 02-13-2023 Calcium [Mass/Vol] 9.3 mg/dL 8.5-10.1 [facility] Serum or plasma creatinine m easurement (mass/volume)Ordered By: Berry Gordon on 02-13-2023 Creatinine [Mass/Vol] 0.83 mg/dL 0.55-1.02 [facility] Comment on above: The validity of the calculated GFR & GFRAA in patients over 70 years has not been determined. Clinical correlation is essential. Serum or plasma urea nitroge n measurement (mass/volume)Ordered By: Berry Gordon on 02-13-2023 Urea nitrogen [Mass/Vol] 13 mg/dL 7- [facility] Thin prep Papanicolaou smear with manual screeningOrdered By: Berry Gordon on 02-13-2023 Thin prep Papanicolaou smear with manual screening 4 09-11 [facility] MA MAMMOGRAM SCREENING BILAT ERAL W/TOMOon 03-11-2021 MA MAMMOGRAM SCREENING BILATERAL W/[place] ORIGINAL FROM: [address] [address] PROCEDURE FOR: FELICE JULIAN [address] [place] [address] Home: PID#: [id number] Exam#: [id number] : 1975 Age: 45 TO: QASIM GRISSOM CNP [address] [place], [place] [address] EXAMINATION: SCREENING DIGITAL BILATERAL MAMMOGRAM WITH TOMOSYNTHESIS, 03/14/2021 TECHNIQUE: Screening mammography of the bilateral breasts was performed with tomosynthesis. 2D standard and 3D tomosynthesis combination imaging performed through both breasts in the MLO and CC projection. Computer aided detection was utilized in the interpretation of this exam. COMPARISON: None. HISTORY: Breast cancer screening. FINDINGS: BREAST DENSITY: Extremely Dense There are few scattered benign-appearing calcifications seen bilaterally. Benign-appearing axillary lymph nodes are seen bilaterally. There are no significant masses or calcifications. IMPRESSION: No mammographic evidence of malignancy. Continued screening with annual mammograms is recommended. BIRADS: MAMMOGRAM BI-RADS: 2: Benign finding RECALL: 1 year screening RECALL TYPE: mammo LETTER SENT: Normal BI-RADS 1 and 2 Interpreted by: Alonso Caldera MD Preliminary Report By: Alonso Caldera MD Electronically signed By Alonso Caldera MD Dictated Date: 03/23/2021 9:34:26 AM Prelim Date: 03/23/2021 9:37:08 AM Sign Date: 03/23/2021 9:37:08 AM Ordering Provider: QSAIM GRISSOM CLINICAL: BASELINE. Shipping And Receiving Weigher: ASHWIN LOPEZ RT(R)(M) letter sent: Normal BI-RADS 1 and 2 Mammogram BI-RADS: 2 Benign Normal [facility] ([place]) Final Surgical Pathology Rep [facility] 02-28-2021 Final Surgical Pathology Report . Pathology Reports Accession: Collected Date/Time: Received Date/Time: Pathologist: [id number] 02/24/2021 16:05 EDT 02/25/2021 08:30 EDT BIMAL ROGER MD Final Surgical Pathology Report DIAGNOSIS: SKIN, RIGHT ANTERIOR THIGH - DERMATOFIBROMA. 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 Received in formalin, labeled with the patients name, Case #[id number], and right anterior thigh is a skin punch biopsy measuring 0.3 cm in diameter and 0.2 cm in thickness. Skin surface is brown homogeneous appearing. Cut surface is inked black. TS -1. Dictated by ETTA MENENDEZ MICROSCOPIC DESCRIPTION: Slides reviewed. Electronically Signed by Pathology Report verified by [facility] Electronically signed by BIMAL ROGER Sign out Date: 02/28/2021 17:15 Performing Lab: [facility], [address] [place] [address] [facility] ([place]) Comment on above: Performed By: #### S PFR #### [address] [address] ABDOMEN/PELVIS W/CONTRASTon 07-23-2020 ABDOMEN/PELVIS W/CONTRAST FELICE SAEED Female [id number] Ordering physician: Liv Sheppard LOC:ER [id number] Attending physician: 1975 44 DO S: 07/23/20 Acc#: [id number] Exam/Proc: ABDOMEN/PELVIS W/CONTRAST Dept: COMPUTED TOMOGRAPHY CT abdomen and pelvis with IV contrast HISTORY: Left lower quadrant abdominal pain COMPARISON: None This exam was performed according to our departmental dose optimization program, and includes the following measures where applicable: automated exposure control, adjustment of the mAs and/or kVp according to patient size and/or exam, and an iterative reconstruction algorithm. FINDINGS: No osseous abnormality. Minimal areas of atelectasis are present at the lung bases. The liver, spleen, adrenal glands and pancreas are normal. There is a subcentimeter central right renal cyst present. The kidneys are otherwise unremarkable. No adenopathy, free air or free fluid seen. There is some tortuosity of the sigmoid colon, but no active GI tract inflammation is evident. There is a left ovarian 4.4 cm cyst with some dependent hyperdensity. This may represent a hemorrhagic cyst. No other pelvic abnormality seen. No additional contributory finding. IMPRESSION: 4.4 cm left ovarian cyst, consistent with a hemorrhagic cyst. No follow-up imaging is recommended. Reference: J Am Jose Radiol 2013;10:675-681 No acute abnormality identified. Electronically signed by: Clifford Lopez MD 07/23/2020 2:43 PM CDT REPORT SIGNATURE ON FILE Electronically Signed Date/Time: 07/23/201442 Dictated Date/time: 07/23/201442 CC: Normal [facility] CBC with AUTO DIFFon 021 BAS0 % 0.40 % Normal 0-2 [facility] Comment on above: Performed By: #### C BC #### [address] [place] [address] Basophils (Bld) [#/Vol] 0.0 10*3/uL Normal 0-0.1 [facility] Comment on above: Performed By: #### C BC #### [facility] [address] [place] [address] Eosinophils (Bld) [#/Vol] 0.0 10*3/uL Normal 0.0-1.80 [facility] Comment on above: Performed By: #### C BC #### [address] [place] [address] Eosinophils/100 WBC (Bld) 0.4 % Normal 0-8 [facility] Comment on above: Performed By: #### C BC #### [address] [place] [address] GRAN # 2.4 K/uL Normal 2.2-9.1 [facility] Comment on above: Performed By: #### C BC #### [address] [place] [address] GRAN % 56.6 % Normal 42-80 [facility] Comment on above: Performed By: #### C BC #### [address] [place] [address] Hematocrit (Bld) [Volume fraction] 38.5 % Normal 37.0-47.0 [facility] Comment on above: Performed By: #### C BC #### [address] [place] [address] Hemoglobin (Bld) [Mass/Vol] 12.5 g/dL Normal 12.0-16.0 [facility] Comment on above: Performed By: #### C BC #### [facility] [address] [place] [address] Lymphocytes (Bld) [#/Vol] 1.6 10*3/uL Normal 1.0-4.0 [facility] Comment on above: Performed By: #### C BC #### [address] [place] [address] Lymphocytes/100 WBC (Bld) 36.7 % Normal 16-48 [facility] Comment on above: Performed By: #### C BC #### [facility] [address] [place] [place] [address] MCV (RBC) [Entitic vol] 85.4 fL Normal 80-97 [facility] Comment on above: Performed By: #### C BC #### [facility] [address] [place] [place] [address] MEAN CORPUSCULAR HGB 27.8 pg Normal 26.0-32.0 [facility] Comment on above: Performed By: #### C BC #### [facility] [address] [place] [place] [address] MEAN CORPUSCULAR HGB CONC 32.5 g/dL Normal 31.0-36.0 [facility] Comment on above: Performed By: #### C BC #### [facility] [address] [place] [place] [address] Monocytes (Bld) [#/Vol] 0.2 10*3/uL Normal 0.1-1.7 [facility] Comment on above: Performed By: #### C BC #### [facility] [address] [place] [place] [address] Monocytes/100 WBC (Bld) 5.9 % Normal 3-9 [facility] Comment on above: Performed By: #### C BC #### [facility] [address] [place] [place] [address] Platelet mean volume (Bld) [Entitic vol] 9.5 fL Normal 6.6-10.5 [facility] Comment on above: Performed By: #### C BC #### [facility] [address] [place] [place] [address] Platelets (Bld) [#/Vol] 205 10*3/uL Normal 140-450 [facility] Comment on above: Performed By: #### C BC #### [facility] [address] [place] [place] [address] RBC (Bld) [#/Vol] 4.51 10*6/uL Normal 4.20-5.50 [facility] Comment on above: Performed By: #### C BC #### [facility] [address] [place] [place] [address] RED CELL DISTRI WIDTH 12.8 % Normal 11.0-15.5 [facility] Comment on above: Performed By: #### C BC #### [facility] [address] [place] [place] [address] WBC (Bld) [#/Vol] 4.2 10*3/uL Normal 4.0-11.0 [facility] Comment on above: Performed By: #### C BC #### [facility] [address] [place] [place] [address] COMPREHENSIVE METABOLIC PANE Brennan 07-23-2020 Albumin [Mass/Vol] 3.8 g/dL Normal 3.4-5.0 [facility] Comment on above: Performed By: #### M N #### [facility] [address] [place] [place] [address] Albumin/Globulin [Mass ratio] 0.9 {ratio} Low 1.1-1.8 [facility] Comment on above: Performed By: #### M N #### [facility] [address] [place] [place] [address] ALP [Catalytic activity/Vol] 70 U/L Normal 45-117 [facility] Comment on above: Performed By: #### M N #### [facility] [address] [place] [place] [address] ALT [Catalytic activity/Vol] 21 U/L Normal 12-78 [facility] Comment on above: Performed By: #### M N #### [facility] [address] [place] [place] [address] Anion gap [Moles/Vol] 6.5 mmol/L Low 11-23 [facility] Comment on above: Performed By: #### M N #### [facility] [address] [place] [place] [address] AST [Catalytic activity/Vol] 14 U/L Low 15-37 [facility] Comment on above: Performed By: #### M N #### [facility] [address] [place] [place] [address] Bilirubin [Mass/Vol] 0.2 mg/dL Normal 0.2-1.0 [facility] Comment on above: Performed By: #### M N #### [facility] [address] [place] [place] [address] Calcium [Mass/Vol] 9.0 mg/dL Normal 8.5-10.1 [facility] Comment on above: Performed By: #### M N #### [facility] [address] [place] [place] [address] Chloride [Moles/Vol] 103 mmol/L Normal 98-107 [facility] Comment on above: Performed By: #### M N #### [facility] [address] [place] [place] [address] CO2 [Moles/Vol] 29.0 mmol/L Normal 21-32 [facility] Comment on above: Performed By: #### M N #### [facility] [address] [place] [place] [address] Creatinine [Mass/Vol] 0.90 mg/dL Normal 0.55-1.02 [facility] Comment on above: Performed By: #### M N #### [facility] [address] [place] [place] [address] GFR > 60.0 [facility] Comment on above: Performed By: #### M N #### [address] [place] [address] GFR AM > 60.0 [facility] Comment on above: Result Comment: THE NORMAL LEVEL OF GFR VARIES ACCORDING TO AGE, SEX, AND BODY SIZE. A GFR LEVEL OF LESS THAN 60 ML/MIN REPRESENTS LOSS OF THE ADULT LEVEL OF NORMAL KIDNEY FUNCTION. Performed By: #### M N #### [address] [place] [address] Globulin (S) [Mass/Vol] 4.1 g/dL Normal 2.5-4.6 [facility] Comment on above: Performed By: #### M N #### [address] [place] [address] Glucose [Mass/Vol] 86 mg/dL Normal 70-100 [facility] Comment on above: Performed By: #### M N #### [address] [place] [address] Potassium [Moles/Vol] 4.6 mmol/L Normal 3.5-5.1 [facility] Comment on above: Performed By: #### M N #### [facility] [address] [place] [place] [address] Protein [Mass/Vol] 7.9 g/dL Normal 6.0-8.3 [facility] Comment on above: Performed By: #### M N #### [address] [place] [address] Sodium [Moles/Vol] 134 mmol/L Low 136-145 [facility] Comment on above: Performed By: #### M N #### [facility] [address] [address] Urea nitrogen [Mass/Vol] 10.0 mg/dL Normal 7-18 [facility] Comment on above: Performed By: #### M N #### [place] [address] [address] ED.PDOCon 07-23-2020 ED.PDOC FELICE SAEED Female [id number] Attending provider: [facility] [id number] Liv Sheppard 1975 44 DOS: 07/23/20 Hx/Exam - History of Present Illness Chief Complaint: ABDOMINAL PAIN Location: LLQ Symptom Duration: 1 Symptom Duration: Day(s) Onset of Symptoms: acute this morning Intensity: moderate Quality: sharp Episode Frequency: constant Radiations: none Symptoms Improve with: none Symptoms Worse with: none Assoc Sxs/Pertinent Hx: last BM today, h/o hysterectomy Patient/Family Denies: fever, cp, sob, dizziness, n/v/d, blood in stools, dysuria, flank pain Additional Comments: Denies any vaginal discharge or bleeding. hysterectomy. - Review of Systems All Other Systems: Pertinent Positives in HPI, All Other Systems Negative Constitutional: Denies: Fever, Chills, Sweats, Weakness, Malaise Respiratory: Denies: Cough, Shortness of Breath, Wheezing Cardiovascular: Denies: Chest Pain, Palpitations, Light Headedness Gastrointestinal: Abdominal Pain. Denies: Nausea, Vomiting, Diarrhea, Constipation, Melena, Hematochezia Genitourinary: Denies: Dysuria, Frequency, Urgency, Hematuria, Incontinence, Retention, Vaginal bleed/discharge Reproductive: Denies Presumptive (hysterectomy) Musculoskeletal: Denies: Neck Pain, Back Pain, Arm Pain, Leg Pain Skin: Denies: Rash, Lesions, Jaundice, Laceration, Abrasion, Bruising Neurological: Denies: Headache, Weakness, Numbness, Incoordination, Change in Speech, Confusion, Seizures - Past Surgical History Surgical History: Yes Hysterectomy - Social History Smoking Status: Never Smoker - Physical Exam General Appearance: awake, alert, no apparent distress Eyes: PERRL, EOMI, conjunctivae clear Head, Ears, Nose, and Throat: pharynx normal, mucous membranes moist Neck: supple, full ROM Respiratory: lungs clear, no wheezes/rhonchi/rale s, no respiratory distress, no accessory muscle use Cardiovascular: regular rate, rhythm, no murmur Abdomen/GI: soft, non-distended, normal bowel sounds, no organomegaly, no pulsatile mass, no peritoneal signs, LLQ tenderness Back: no CVA tenderness Extremity: normal range of motion, non-tender, normal inspection, normal capillary refill Pulses: Radial: 2+ Neurologic: no motor/sensory deficits, normal gait, normal strength, normal sensation, speech clear/fluent Psychiatric: oriented x3, calm Skin Exam: warm/dry, normal color - Source of History Source of History: Nursing Notes/Vital Signs/Triage Reviewed and Agree Source of History: Old Medical Records Reviewed Note(s) - Physician Notes Additional Notes, See Orders for Details: 07/23/20 14:56 Labs reviewed and unremarkable including a normal white count and lactic acid. 07/23/20 16:10 Urinalysis negative. 07/23/20 16:10 Exam/Proc: ABDOMEN/PELVIS W/CONTRAST Dept: COMPUTED TOMOGRAPHY CT abdomen and pelvis with IV contrast HISTORY: Left lower quadrant abdominal pain COMPARISON: None This exam was performed according to our departmental dose optimization program, and includes the following measures where applicable: automated exposure control, adjustment of the mAs and/or kVp according to patient size and/or exam, and an iterative reconstruction algorithm. FINDINGS: No osseous abnormality. Minimal areas of atelectasis are present at the lung bases. The liver, spleen, adrenal glands and pancreas are normal. There is a subcentimeter central right renal cyst present. The kidneys are otherwise unremarkable. No adenopathy, free air or free fluid seen. There is some tortuosity of the sigmoid colon, but no active GI tract inflammation is evident. There is a left ovarian 4.4 cm cyst with some dependent hyperdensity. This may represent a hemorrhagic cyst. No other pelvic abnormality seen. No additional contributory finding. IMPRESSION: 4.4 cm left ovarian cyst, consistent with a hemorrhagic cyst. No follow-up imaging is recommended. Reference: J Am Jose Radiol 2013;10:675-681 No acute abnormality identified. Electronically signed by: Clifford Lopez MD 07/23/2020 2:43 PM CDT REPORT SIGNATURE ON FILE Electronically Signed Date/Time: 07/23/201442 Dictated Date/time: 07/23/20144207/23/20 16:45 Exam/Proc: TRANSVAGINAL PELVIS Dept: ULTRASOUND Procedure: Pelvic ultrasound Clinical:? LEFT pelvic pain Technique: Transabdominal and transvaginal ultrasound of the pelvis was performed utilizing Doppler flow imaging. Comparison: No prior ultrasound examinations. Correlated with CT abdomen pelvis 07/23/2020 Findings: Uterus Surgically absent. Normal-appearing vaginal cuff. ? RIGHT ovary: Size: 2.2 x 2.5 x 1.5 cm Appearance: Normal. Lesion: None. Blood flow: Normal. No ovarian lesion or cyst is identified.Normal Doppler flow is noted to the right ovary. ? Left Ovary: Size: 4.8 x 4.8 x 4.4 cm Appearance: Normal. Lesion: None. Blood flow: (more content not included)... Normal [facility] LACTIC ACIDon 07-23-2020 Lactate [Moles/Vol] 1.5 mmol/L Normal 0.4-2.0 [facility] Comment on above: Order Comment: Y Performed By: #### L A #### [address] [address] TRANSVAGINAL PELVISon 2020 TRANSVAGINAL PELVIS FELICE SAEED Female [id number] Ordering physician: Liv Sheppard LOC:ER [id number] Attending physician: 1975 44 DO S: 07/23/20 Acc#: [id number] Exam/Proc: TRANSVAGINAL PELVIS Dept: ULTRASOUND Procedure: Pelvic ultrasound Clinical:? LEFT pelvic pain Technique: Transabdominal and transvaginal ultrasound of the pelvis was performed utilizing Doppler flow imaging. Comparison: No prior ultrasound examinations. Correlated with CT abdomen pelvis 07/23/2020 Findings: Uterus Surgically absent. Normal-appearing vaginal cuff. ? RIGHT ovary: Size: 2.2 x 2.5 x 1.5 cm Appearance: Normal. Lesion: None. Blood flow: Normal. No ovarian lesion or cyst is identified.Normal Doppler flow is noted to the right ovary. ? Left Ovary: Size: 4.8 x 4.8 x 4.4 cm Appearance: Normal. Lesion: None. Blood flow: Normal. Hemorrhagic ovarian cyst measuring 4.2 x 3.9 x 4.0 cm.Normal Doppler flow is noted to the left ovary. Cul-de-sac: No free fluid. Adnexa: Masses: None. Free fluid:? None. .? ? Impression: 1.??Hemorrhagic left ovarian cyst for which no further follow-up imaging is recommended. 2. Unremarkable right ovary. 3. Surgically absent uterus. Electronically signed by: Etta Rincon MD 07/23/2020 3:36 PM CDT REPORT SIGNATURE ON FILE Electronically Signed Date/Time: 07/23/20 1536 Dictated Date/time: 07/23/20 1536 CC: Normal [facility] URINALYSISon 07-23-2020 Appearance (U) Clear Normal CLEAR [facility] Comment on above: Order Comment: What Is Urine Source? [place] Performed By: #### U A #### [address] [address] Color (U) Lt. Yellow Normal [facility] Comment on above: Order Comment: What Is Urine Source? [place] Performed By: #### U A #### [facility] [address] [place] [address] Hemoglobin Ql (U) Negative Normal NEGATIVE [facility] Comment on above: Order Comment: What Is Urine Source? [place] Performed By: #### U A #### [facility] [address] [place] [address] pH (U) 7.5 [pH] Normal 5.0-9.0 [facility] Comment on above: Order Comment: What Is Urine Source? [place] Performed By: #### U A #### [address] [address] URINE BILIRUBIN - DIPSTICK Negative Normal NEGATIVE [facility] Comment on above: Order Comment: What Is Urine Source? [place] Performed By: #### U A #### [facility] [address] [place] [address] URINE GLUCOSE -DIPSTICK Negative Normal NEGATIVE A [facility] Comment on above: Order Comment: What Is Urine Source? [place] Performed By: #### U A #### [facility] [address] [place] [address] URINE KETONE Negative Normal NEGATIVE [facility] Comment on above: Order Comment: What Is Urine Source? [place] Performed By: #### U A #### [address] [place] [address] URINE LEUK ESTERASE Negative Normal NEGATIVE [facility] Comment on above: Order Comment: What Is Urine Source? [place] Performed By: #### U A #### [address] [address] URINE NITRITE - DIPSTICK Negative Normal NEGATIVE [facility] Comment on above: Order Comment: What Is Urine Source? [place] Performed By: #### U A #### [address] [address] URINE PROTEIN - DIPSTICK Negative Normal NEGATIVE [facility] Comment on above: Order Comment: What Is Urine Source? [place] Performed By: #### U A #### [address] [address] URINE SPEC GRAVITY, DIPSTICK 1.010 Normal 1.003-1.035 [facility] Comment on above: Order Comment: What Is Urine Source? [place] Performed By: #### U A #### [address] [address] URINE UROBILINOGEN - DIPSTICK 0.2 E.U./dL Normal <=1.0 [facility] Comment on above: Order Comment: What Is Urine Source? [place] Performed By: #### U A #### [address] [address] Vital Signs Date Time Vital Sign Value Performing Clinician Soni david 03-13-2023 03:44-0500 Diastolic blood pressure 77 mm[Hg] [facility] 03-13-2023 03:44-0500 Heart rate 62 /min [facility] 03-13-2023 03:44-0500 Respiratory rate 15 /min [facility] 03-13-2023 03:44-0500 SaO2% (BldA) [Mass fraction] 97 % [facility] 03-13-2023 03:44-0500 Systolic blood pressure 134 mm[Hg] [facility] 03-13-2023 00:53-0500 Body height 165.1 cm [facility] 03-13-2023 00:53-0500 Body mass index (BMI) [Ratio] 26.2 kg/m2 [facility] 03-13-2023 00:53-0500 Body temperature 98.7 [degF] [facility] 03-13-2023 00:53-0500 Body weight 71.4 kg [facility] 02-13-2023 10:00-0400 Body height 170.18 cm [facility] 02-13-2023 10:00-0400 Body mass index (BMI) [Ratio] 24.4 kg/m2 [facility] 02-13-2023 10:00-0400 Body temperature 98.8 [degF] [facility] 02-13-2023 10:00-0400 Body weight 70.66 kg [facility] 02-13-2023 10:00-0400 Diastolic blood pressure 51 mm[Hg] [facility] 02-13-2023 10:00-0400 Heart rate 74 /min [facility] 02-13-2023 10:00-0400 Respiratory rate 16 /min [facility] 02-13-2023 10:00-0400 SaO2% (BldA) [Mass fraction] 100 % [facility] 02-13-2023 10:00-0400 Systolic blood pressure 112 mm[Hg] [facility] Encounters Encounter Date Encounter Type Care Provider Facility Start: 03-19-2025 ambulatory Ryan Edmondson Facility:[facility] Start: 02-23-2025 Encounter for genera l adult medical examination without abnormal findings Ryan Edmondson [facility] Start: 02-11-2025 End: 02-11-2025 ambulatory Ryan Edmondson Facility:[facility] Start: 12-12-2024 End: 12-12-[address] Ryan Edmondson MD Work Phone: -Laboratory [facility] Start: 12-12-2024 End: 12-12-[address] Ryan Edmondson MD -Laboratory [facility] Start: 12-12-2024 End: 12-12-2024 ambulatory Ryan Edmondson Facility:[facility] Start: 03-13-2023 End: 03-13-2023 Emergency department patient visit [facility]-Emergency Department Work Phone: Start: 02-13-2023 End: 02-13-2023 Emergency department patient visit [facility]-Emergency Department Work Phone: Procedures Date Procedure Procedure Detail Performing Clinician Start: 03-13-2023 CT of soft tissues o f neck with contrast Start: 02-13-2023 CT of soft tissues o f neck with contrast Plan of Treatment Date Care Activity Detail Author Start: 03-13-2023 End: 03-13-2023 [facility] Start: 02-13-2023 [facility] Patient Education ED ADENITIS Ce rvical Abx Tx [facility] Work Phone: Patient referral [facility] Work Phone: Payers Date Payer Category Payer Self-pay 2024 Unknown [id number] Unknown [id number] Unknown [id number] Unknown [id number] [id number] [id number] Social History Date Type Detail Facility Start: 02-13-2023 End: 03-13-2023 Tobacco smoking status NHIS Unknown if ever smoked [facility] Start: 1975 Sex Assigned At Female [facility] Start: 03-12-2023 Tobacco smoking stat us NHIS Never smoked tobacco (finding) [facility] Mental Status Date Assessment Result Facility 02-13-2023 Cognitive function Level Of Cons ciousness Awake;Alert;Appropriate [facility] Work Phone: Evaluation note Note Date & Type Note Facility Evaluation note No assessment information availa ble [facility] Work Phone: Hospital Discharge instructions Note Date & Type Note Facility Hospital Discharge instructions Additional Instructions Your CT soft tissue neck notes right side anterior cervical lymphadenopathy, multiple ones largest being 1.3 cm. You have tenderness. Take steroid and antibiotic as prescribed. Follow-up with Dr. Black. [facility] Work Phone: Reason for referral (narrative) Note Date & Type Note Facility Reason for referral (narrative) No reason for referral information available [facility] Work Phone: Summary Purpose Family History No Family History Records FoundNo Family History Records FoundNo Family History Records Found Advance Directives No Advanced Directives Records Found Advance Directive Response Recorded Date/ Time Living Will No February 13 10:28am Power of Electrical Test Engineer No February 13, 2023 10:28am Advance Directive Response Recorded Date/ Time Living Will No March 13, 023 12:53am Power of Electrical Test Engineer No March 13, 2023 12:53am Chief Complaint and Reason for Visit Chief Complaint FOREIGN BODY Chief Complaint FOREIGN BODY sore throat Additional Source Comments INFORMATION SOURCE (unrecogn ized section and content) DATE CREATED AUTHOR 02/28/2021 [facility] DATE CREATED AUTHOR AUTHOR'S ORGANIZ ATION 04/04/2021 [facility] ([place] DATE CREATED AUTHOR AUTHOR'S ORGANIZ ATION 03/12/2025 [facility] Care Teams (unrecognized sec tion and content) Team Status: Active Member Role Status Dates No Primary Care Physician Primary Care Provider Active Team Status: Inactive Member Role Status Dates Dr. Berry Gordon DO Emergency Provider Active No Primary Care Physician Primary Care Provider Active Team Status: Inactive Member Role Status Dates Dr. Berry Gordon DO Attending Provider, Emergency Provide r Active No Primary Care Physician Primary Care Provider Active Team Status: Inactive Member Role Status Dates No Primary Care Physician Primary Care Provider Active Dr. Bimal Cherry DO Emergency Provider Active Team Status: Active Member Role/Relationship Status Dates Dr. Ryan Edmondson MD Primary Care Provider Active Team Status: Inactive Member Role/Relationship Status Dates Dr. Ryan Edmondson MD Primary Care Provider Active Start: December 12, 2024 End: December 12, 2024 Dr. Ryan Edmondson MD Attending Provider Active Start: December 12, 2024 End: December 12, 2024 Dr. Ryan Edmondson MD Referring Provider Active Start: December 12, 2024 End: December 12, 2024 Goals (unrecognized section and content) Goals may be documented in a n alternate sectionGoals may be documented in an alternate sectionGoals may be documented in an alternate section FOR RECORDS PERTAINING TO PATIENTS WHO ARE OR HAVE BEEN ENROLLED IN A CHEMICAL DEPENDENCY/SUBSTANCEABUSE PROGRAM, SOME INFORMATION MAY BE OMITTED. This clinical summary was aggregated from multiple sources. Caution should be exercised in using it in the provision of clinical care. This summary normalizes information from multiple sources, and as a consequence, information in this document may materially change the coding, format and clinical context of patient data. In addition, data may be omitted in some cases. CLINICAL DECISIONS SHOULD BE BASED ON THE PRIMARY CLINICAL RECORDS. [employer] provides no warranty or guarantee of the accuracy or completeness of information in this document.
[2025-03-14 09:15] LABS: AST(SGOT) 22 U/L (<=31); Alanine Aminotransfer ALT/SGPT 16 U/L (<=34); Albumin, Serum 4.2 g/dL (3.5-5.0); Alkaline Phosphatase 119 U/L (35-104); Anion Gap 8 (5-15); BUN 15 mg/dL (4-19); BUN/Creat Ratio 16.7 RATIO (10-20); Calcium,Total 9.8 mg/dL (7.6-11.0); Carbon Dioxide 27.0 mmol/L (21.0-32.0); Chloride 105 mmol/L (98-108); Cholesterol 268 mg/dL (<=200); Globulin 3.6 g/dL (2.2-4.2); Glucose 96 mg/dL (70-99); Low Density Lipoprotein Calc. 194 mg/dL; Potassium 4.5 mmol/L (3.3-5.1); Triglycerides 70 mg/dL; Very Low Density Lipoprotein 14 mg/dL (5-40); cholesterol:hdl ratio screen 4.27
== END | disposition home or self-care (01) ==
LOC: LAB 08:33
PROVIDERS: PCP Family Medicine; Referring Provider Family Medicine; Visit Provider Family Medicine
DX: E78.00 Pure hypercholesterolemia, unspecified (principal); R79.89 Other specified abnormal findings of blood chemistry
CPT/HCPCS: 36415; 80053; 80061; 84443

== ENCOUNTER → 2025-03-19 | Outpatient (CLI) | payer BC, SELFPAY ==
--- NOTE | 2025-03-19 15:27 | US_ITS ---
PROCEDURE: BREAST LIMITED UNILATERAL 03/19/2025 REASON FOR EXAM: F, Age 49 y/o , NODULE COMPARISON: Mammogram 02/11/2025 and 03/11/2021. TECHNIQUE: Procedure Code: USBRSTLIMIT Modality: US Procedure: BREAST LIMITED UNILATERAL FINDINGS: Follow-up examination performed for the left breast masses seen on examination of 02/11/2025, on the present examination there are multiple circumscribed masses scattered throughout the left breast. There is an oval circumscribed hypoechoic mass with mild internal vascularity in the left breast at 2 o'clock 7 cm from the nipple measuring 1.9 x 1.7 x 1.2 cm. This correlates with the mammographic finding in the lateral left breast, which has been mammographically stable when compared to examination of 2020. There is an oval circumscribed hypoechoic mass with no internal vascularity at 9:30 o'clock 3 cm from the nipple measuring 1.3 x 1.0 x 0.8 cm. This correlates with the mammographic finding in the medial left breast, which has been mammographically stable when compared to examination of 2020. There is a cyst cluster in the left breast at 8:30 o'clock 4 cm from the nipple measuring 0.9 x 0.9 x 0.6 cm. There is an oval circumscribed hypoechoic mass in the left breast at 1 o'clock 6 cm from the nipple measuring 1.0 x 0.7 x 0.5 cm. There is a cyst cluster/dilated duct in the left breast at 10 o'clock 6 cm from the nipple. There are a few dilated ducts in the retroareolar left breast. There is a mildly prominent left axillary lymph node with preserved architecture measuring 1.3 x 0.7 x 1.2 cm with cortical thickness of 0.3 cm. 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 These masses have been mammographically stable dating back to 2020 and are therefore considered benign. Benign left breast cyst cluster and dilated ducts. BI-RADS 2: BENIGN RECOMMENDATION: Routine annual follow-up in 1 Year Reading Location: [id number]
== END | disposition home or self-care (01) ==
LOC: OPUS 15:25
PROVIDERS: PCP Family Medicine; Referring Provider Family Medicine; Visit Provider Family Medicine
DX: N63.20 Unspecified lump in the left breast, unspecified quadrant (principal)
CPT/HCPCS: 76642